=== PATIENT | female | born 1965 | race African-American/Black ===

== ENCOUNTER 2020-06-14 07:42 | Emergency (ER) | payer MEDICAID, OTHER ==
[~2020-06-14] VITALS: Ht 157.5 cm; Wt 90.7 kg
[2020-06-14 08:31] LABS: Basophils # (auto) 0 10 ^3/uL (0-0.2); Basophils % (auto) 0.3 % (0.0-2.0); Eosinophils # (auto) 0 10 ^3/uL (0-0.8); White Blood Cell 10.4 10^3/uL (4.4-10.8)
[2020-06-14 08:32] LABS: Eosinophils % (auto) 0.2 % (0.0-7.0); Hematocrit 44.6 % (36.0-46.0); Hemoglobin 14.6 g/dL (12.2-16.2); Lymphocytes # (auto) 0.4 10 ^3/uL (0.4-5.4); Mean Corpuscular Hemoglobin 22.5 pg (28.0-32.0); Mean Corpuscular Hgb Conc. 32.7 g/dL (32.0-36.0); Mean Corpuscular Volume 68.8 fL (80.0-100.0); Monocytes # (auto) 0.3 10 ^3/uL (0-1.3); Monocytes % (auto) 3.3 % (0.0-12.0); Neutrophils # (auto) 9.6 10 ^3/uL (1.6-8.6); Neutrophils % (auto) 92.2 % (37.0-80.0); Red Blood Cells 6.48 10^6/uL (4.0-5.20); Red Cell Distribution Width 15.5 % (11.8-14.3)
[2020-06-14] MEDS ORDERED: SODIUM CHLORIDE 0.9% 1,000 ML IV ONE ×2 (08:45)
[2020-06-14 08:49] LABS: Alanine Aminotransferase 13 U/L (13-56); Albumin 3.6 g/dL (3.4-5.0); Amylase 45 U/L (25-115); Anion Gap 9 (5-15); Aspartate Aminotransferase 14 U/L (15-37); BUN/Creatinine Ratio 19.5; Blood Urea Nitrogen 16 mg/dL (7-18); Calcium 8.5 mg/dL (8.5-10.1); Carbon Dioxide 22 mmol/L (21-32); Chloride 108 mmol/L (98-107); GFR African American 93 mL/min; GFR Non-African American 77 mL/min; Glucose 108 mg/dL (74-106); Lipase 100 U/L (73-393); Potassium 4.4 mmol/L (3.5-5.1); Sodium 139 mmol/L (136-145)
[2020-06-14 08:52] LABS: Urine Bacteria NONE SEEN /hpf (None Seen); Urine Blood Negative /uL (Negative); Urine Hyaline Cast FEW /lpf (0 - 2); Urine Mucus FEW (None Seen); Urine Specific Gravity 1.024 (1.001-1.035); Urine WBC 2 /hpf (0 - 5)
[2020-06-14 08:54] LABS: Alkaline Phosphatase 84 U/L (45-117); Bilirubin, Total 0.5 mg/dL (0.2-1.0); Total Protein 7.4 g/dL (6.4-8.2)
[2020-06-14 10:39] VITALS: BP 106/51
== END 2020-06-14 10:50 | disposition home or self-care (01) ==
LOC: ER 07:42
DX: R10.84 Generalized abdominal pain (principal); R07.9 Chest pain, unspecified; R19.7 Diarrhea, unspecified; F17.210 Nicotine dependence, cigarettes, uncomplicated; F31.9 Bipolar disorder, unspecified; F20.9 Schizophrenia, unspecified
CPT/HCPCS: 36415; 71045; 80053; 81001; 82150; 83690; 83735; 84484; 85025; 93005; 99285; J7030

== ENCOUNTER 2020-08-18 07:38 | Emergency (ER) | payer MEDICAID ==
[~2020-08-18] VITALS: Ht 157.5 cm; Wt 91.6 kg
[2020-08-18 08:07] LABS: Basophils # (auto) 0.1 10 ^3/uL (0-0.2); Basophils % (auto) 0.7 % (0.0-2.0); Eosinophils # (auto) 0.2 10 ^3/uL (0-0.8); Eosinophils % (auto) 2.7 % (0.0-7.0); Hematocrit 38.5 % (36.0-46.0); Hemoglobin 12.7 g/dL (12.2-16.2); Lymphocytes # (auto) 2.8 10 ^3/uL (0.4-5.4); Lymphocytes % (auto) 35.2 % (10.0-50.0); Mean Corpuscular Hemoglobin 22.5 pg (28.0-32.0); Mean Corpuscular Hgb Conc. 32.9 g/dL (32.0-36.0); Mean Corpuscular Volume 68.2 fL (80.0-100.0); Monocytes # (auto) 0.6 10 ^3/uL (0-1.3); Monocytes % (auto) 7.9 % (0.0-12.0); Neutrophils # (auto) 4.2 10 ^3/uL (1.6-8.6); Neutrophils % (auto) 53.5 % (37.0-80.0); Nucleated Red Blood Cells % 0.1 %; Platelet Count (auto) 185 10^3/uL (140-450); Red Blood Cells 5.65 10^6/uL (4.0-5.20); Red Cell Distribution Width 15.9 % (11.8-14.3); White Blood Cell 7.9 10^3/uL (4.4-10.8)
[2020-08-18 08:11] VITALS: BP 155/77
[2020-08-18 08:22] LABS: Albumin 3.5 g/dL (3.4-5.0); Calcium 8.6 mg/dL (8.5-10.1); Potassium 4.3 mmol/L (3.5-5.1)
[2020-08-18 08:26] LABS: Bilirubin, Total 0.5 mg/dL (0.2-1.0); Total Protein 6.9 g/dL (6.4-8.2)
[2020-08-18 08:43] LABS: Urine Bacteria FEW /hpf (None Seen); Urine Blood Negative /uL (Negative); Urine Mucus FEW (None Seen); Urine Specific Gravity 1.018 (1.001-1.035); Urine WBC 14 /hpf (0 - 5)
== END 2020-08-18 09:52 | disposition home or self-care (01) ==
LOC: ER 07:38
DX: N39.0 Urinary tract infection, site not specified (principal); R42 Dizziness and giddiness; R51.9 Headache, unspecified; F20.9 Schizophrenia, unspecified; F31.9 Bipolar disorder, unspecified; F17.210 Nicotine dependence, cigarettes, uncomplicated
CPT/HCPCS: 36415; 70450; 72040; 80053; 81001; 85025

== ENCOUNTER 2020-10-06 05:23 | Emergency (ER) | payer MEDICAID ==
[~2020-10-06] VITALS: Ht 165.1 cm; Wt 81.6 kg
[2020-10-06 07:31] VITALS: BP 145/93
[2020-10-06] MEDS ORDERED: PROMETHAZINE HCL 25 MG/ML 1ML IM ONE (07:45)
[2020-10-06] MEDS ORDERED: HYDROmorphone HCL 2 MG/ML VL IM ONE (07:45)
== END 2020-10-06 08:46 | disposition home or self-care (01) ==
LOC: ER 05:23
DX: G89.29 Other chronic pain (principal); M54.9 Dorsalgia, unspecified; M54.12 Radiculopathy, cervical region; F17.210 Nicotine dependence, cigarettes, uncomplicated
CPT/HCPCS: 72125; 96372; 99284; J1170; J2550

== ENCOUNTER 2021-07-13 07:18 | Emergency (ER) | payer MEDICAID ==
[~2021-07-13] VITALS: Ht 157.5 cm; Wt 90.7 kg
[2021-07-13 07:47] VITALS: BP 125/62
[2021-07-13] MEDS ORDERED: CEPH-509 PO (08:03)
[2021-07-13 08:07] LABS: Urine Bacteria FEW /hpf (None Seen); Urine Blood Negative /uL (Negative); Urine Specific Gravity 1.017 (1.001-1.035); Urine WBC 13 /hpf (0 - 5)
== END 2021-07-13 08:10 | disposition home or self-care (01) ==
LOC: ER 07:18
DX: S30.814A Abrasion of vagina and vulva, initial encounter (principal); F17.210 Nicotine dependence, cigarettes, uncomplicated; Z79.899 Other long term (current) drug therapy; Z88.0 Allergy status to penicillin; X58.XXXA Exposure to other specified factors, initial encounter; Y93.89 Activity, other specified; Y92.89 Other specified places as the place of occurrence of the external cause; Y99.8 Other external cause status
CPT/HCPCS: 81001

== ENCOUNTER 2021-12-23 17:33 | Emergency (ER) | payer MEDICAID ==
[~2021-12-23] VITALS: Ht 157.5 cm; Wt 100.0 kg
[~2021-12-23 17:33] MED LIST: CEPH-509 PO
[2021-12-23] MEDS ORDERED: diphenhdrAMINE HCL 50 MG/1 ML VL ONE (17:53)
[2021-12-23] MEDS ORDERED: methylPREDNISolone SOD SUCC 125 MG/2 ML VL ONE (17:53)
[2021-12-23] MEDS ORDERED: methylPREDNISolone SOD SUCC 125 MG/2 ML VL IV ONE (18:00)
[2021-12-23] MEDS ORDERED: diphenhdrAMINE HCL 50 MG/1 ML VL IV ONE (18:00)
[2021-12-23 20:52] VITALS: BP 132/78
[2021-12-23] MEDS ORDERED: EPIN0.3I24 IJ (20:59)
== END 2021-12-23 20:51 | disposition left against medical advice (07) ==
LOC: ER 17:33
DX: T78.40XA Allergy, unspecified, initial encounter (principal); F17.210 Nicotine dependence, cigarettes, uncomplicated; Z90.710 Acquired absence of both cervix and uterus; Z79.899 Other long term (current) drug therapy; Z88.0 Allergy status to penicillin; Y92.89 Other specified places as the place of occurrence of the external cause
CPT/HCPCS: 70490; 96374; 96375; 99284; J1200; J2930

== ENCOUNTER 2022-03-13 08:54 | Emergency (ER) | payer MEDICAID, OTHER ==
[~2022-03-13] VITALS: Ht 157.5 cm; Wt 100.3 kg
[~2022-03-13 08:54] MED LIST changes: +EPIN0.3I24 IJ
[2022-03-13 09:34] VITALS: BP 134/79
[2022-03-13] MEDS ORDERED: PROM1SOL4 PO (10:44)
[2022-03-13] MEDS ORDERED: AZIT500T66 PO (10:44)
== END 2022-03-13 10:51 | disposition home or self-care (01) ==
LOC: ER 08:57
DX: S16.1XXA Strain of muscle, fascia and tendon at neck level, initial encounter (principal); S39.012A Strain of muscle, fascia and tendon of lower back, initial encounter; J20.9 Acute bronchitis, unspecified; F17.210 Nicotine dependence, cigarettes, uncomplicated; Z90.710 Acquired absence of both cervix and uterus; Z79.2 Long term (current) use of antibiotics; Z79.899 Other long term (current) drug therapy; Z88.0 Allergy status to penicillin; V49.9XXA Car occupant (driver) (passenger) injured in unspecified traffic accident, initial encounter; Y93.89 Activity, other specified; Y92.410 Unspecified street and highway as the place of occurrence of the external cause; Y99.8 Other external cause status
CPT/HCPCS: 71045; 72040; 72070

== ENCOUNTER 2022-07-25 04:19 | Emergency (ER) | payer MEDICAID, OTHER ==
[~2022-07-25] VITALS: Ht 157.5 cm; Wt 94.1 kg
[~2022-07-25 04:19] MED LIST changes: +AZIT500T66 PO; +PROM1SOL4 PO
[2022-07-25 06:29] VITALS: BP 135/75
== END 2022-07-25 07:05 | disposition home or self-care (01) ==
LOC: ER 04:19
DX: S93.402A Sprain of unspecified ligament of left ankle, initial encounter (principal); M19.90 Unspecified osteoarthritis, unspecified site; G89.29 Other chronic pain; F17.210 Nicotine dependence, cigarettes, uncomplicated; Z90.710 Acquired absence of both cervix and uterus; Z88.0 Allergy status to penicillin; X50.9XXA Other and unspecified overexertion or strenuous movements or postures, initial encounter; Y93.01 Activity, walking, marching and hiking; Y92.89 Other specified places as the place of occurrence of the external cause; Y99.8 Other external cause status
CPT/HCPCS: 73610

== ENCOUNTER 2023-05-15 14:46 | Inpatient (IN) | payer MEDICAID ==
[~2023-05-15] VITALS: Ht 157.5 cm; Wt 105.6 kg
[2023-05-15 15:18] LABS: Basophils # (auto) 0 10 ^3/uL (0-0.2); Eosinophils # (auto) 0.1 10 ^3/uL (0-0.8); Mean Corpuscular Hemoglobin 21.6 pg (28.0-32.0); Monocytes # (auto) 0.8 10 ^3/uL (0-1.3); Nucleated Red Blood Cells % 0.1 %; White Blood Cell 11.1 10^3/uL (4.4-10.8)
[2023-05-15 15:20] LABS: Basophils % (auto) 0.3 % (0.0-2.0); Eosinophils % (auto) 0.7 % (0.0-7.0); Hematocrit 44.8 % (36.0-46.0); Hemoglobin 14.2 g/dL (12.2-16.2); Lymphocytes # (auto) 3.7 10 ^3/uL (0.4-5.4); Lymphocytes % (auto) 33.4 % (10.0-50.0); Mean Corpuscular Hgb Conc. 31.7 g/dL (32.0-36.0); Mean Corpuscular Volume 68.3 fL (80.0-100.0); Monocytes % (auto) 6.9 % (0.0-12.0); Neutrophils # (auto) 6.5 10 ^3/uL (1.6-8.6); Neutrophils % (auto) 58.7 % (37.0-80.0); Red Blood Cells 6.56 10^6/uL (4.0-5.20); Red Cell Distribution Width 16.3 % (11.8-14.3)
[2023-05-15 15:29] LABS: Chloride 105 mmol/L (98-107); Potassium 3.6 mmol/L (3.5-5.1); Sodium 139 mmol/L (136-145)
[2023-05-15 15:30] LABS: Anion Gap 3 (5-15); Calcium 9.4 mg/dL (8.5-10.1); Carbon Dioxide 31 mmol/L (20-30)
[2023-05-15 15:35] LABS: BUN/Creatinine Ratio 8.5 (10.0-20.0); Blood Urea Nitrogen 9 mg/dL (9-23); Glucose 82 mg/dL (74-106)
[2023-05-15 15:44] LABS: Urine Bacteria FEW /hpf (None Seen); Urine Blood Negative /uL (Negative); Urine Clarity Clear (Clear); Urine Color Yellow (Yellow); Urine Mucus FEW (None Seen); Urine Protein, UAD Negative (Negative); Urine WBC 5 /hpf (0 - 5)
[2023-05-15] MEDS ORDERED: ONDANSETRON HCL 4 MG/2 ML VIAL IV PRN (18:30)
[2023-05-15] MEDS: SODIUM CHLORIDE 0.9% 1,000 ML IV ONE (18:50)
[2023-05-15 19:07] LABS: Creatinine, Urine 177.89 mg/dL (30.0-125.0)
[2023-05-15] MEDS: SODIUM CHLORIDE 0.9% 1,000 ML IV SCH (20:27)
[2023-05-15] MEDS: levoFLOXacin 500MG 100 ML IV ONE (20:31)
[2023-05-15] MEDS: KETOROLAC TROMETH 30 MG/ML 1ML VIAL IV ONE (20:35)
[2023-05-15 23:27] VITALS: BP 131/74; PULSE 75; RESP 20; TEMP 98.9
[2023-05-16] VITALS (7 sets, daily range): BP systolic 121–135; BP diastolic 66–74; PULSE 75–89; RESP 14–19; TEMP 97.3–98.3; O2SAT 96–99
[2023-05-16] MEDS: MORPHINE SULFATE INJ 2 MG/ml SYRG IV PRN (00:37)
[2023-05-16 05:03] LABS: Basophils # (auto) 0 10 ^3/uL (0-0.2); Basophils % (auto) 0.3 % (0.0-2.0); Eosinophils # (auto) 0.1 10 ^3/uL (0-0.8); Monocytes # (auto) 0.6 10 ^3/uL (0-1.3)
[2023-05-16 05:05] LABS: Eosinophils % (auto) 1.1 % (0.0-7.0); Hematocrit 39.9 % (36.0-46.0); Hemoglobin 12.9 g/dL (12.2-16.2); Lymphocytes # (auto) 3.4 10 ^3/uL (0.4-5.4); Mean Corpuscular Hemoglobin 22.1 pg (28.0-32.0); Mean Corpuscular Hgb Conc. 32.4 g/dL (32.0-36.0); Monocytes % (auto) 7.5 % (0.0-12.0); Neutrophils # (auto) 4.2 10 ^3/uL (1.6-8.6); Neutrophils % (auto) 50.1 % (37.0-80.0); Nucleated Red Blood Cells % 0.1 %; Red Blood Cells 5.87 10^6/uL (4.0-5.20); White Blood Cell 8.4 10^3/uL (4.4-10.8)
[2023-05-16 05:21] LABS: Albumin 3.6 g/dL (3.2-4.8); Alkaline Phosphatase 65 U/L (46-116); Anion Gap 4 (5-15); Aspartate Aminotransferase 13 U/L (13-40); BUN/Creatinine Ratio 11.1 (10.0-20.0); Bilirubin, Total 0.5 mg/dL (0.2-1.0); Blood Urea Nitrogen 10 mg/dL (9-23); Calcium 8.7 mg/dL (8.7-10.4); Carbon Dioxide 27 mmol/L (20-30); Chloride 110 mmol/L (98-107); Glucose 89 mg/dL (74-106); Potassium 4.2 mmol/L (3.5-5.1); Sodium 141 mmol/L (136-145)
[2023-05-16 05:22] LABS: Total Protein 6.1 g/dL (5.7-8.2)
[2023-05-16 05:23] LABS: Alanine Aminotransferase < 9 U/L (7-40)
[2023-05-16] MEDS ORDERED: GABA800T97 PO (07:08)
[2023-05-16] MEDS ORDERED: LURA40TA2 PO (07:08)
[2023-05-16] MEDS ORDERED: PERCOT PO (07:52)
[2023-05-16] MEDS: PANTOPRAZOLE 40 MG/10 ML VIAL INJ IV SCH (09:06)
[2023-05-16] MEDS: levoFLOXacin 500MG 100 ML IV SCH (09:10)
[2023-05-16] MEDS: DOCUSATE SOD 100 MG CAP PO PRN (09:52)
[2023-05-16] MEDS: KETOROLAC TROMETH 30 MG/ML 1ML VIAL IV PRN (23:07)
[2023-05-17 05:00] VITALS: BP 101/55; PULSE 70; RESP 19; TEMP 98.1; O2SAT 98
[2023-05-17 08:00] VITALS: RESP 18
[2023-05-17 08:40] VITALS: BP 127/69; PULSE 86; RESP 18; TEMP 97.7; O2SAT 96
[2023-05-17 12:50] VITALS: BP 141/74; PULSE 87; RESP 18; TEMP 97.4; O2SAT 99
== END 2023-05-17 15:50 | disposition left against medical advice (07) | DRG 241 ==
LOC: ER 14:46 → OVERFLOW 18:27 → CENTRAL 22:15 → WEST WING 05-16 19:05
PROVIDERS: ADMIT Nurse Practitioner Family; ATTEND Nurse Practitioner Family
DX: K29.00 Acute gastritis without bleeding (principal); N17.9 Acute kidney failure, unspecified; N13.6 Pyonephrosis; F17.210 Nicotine dependence, cigarettes, uncomplicated; Z53.29 Procedure and treatment not carried out because of patient's decision for other reasons; K44.9 Diaphragmatic hernia without obstruction or gangrene; F20.9 Schizophrenia, unspecified; F31.9 Bipolar disorder, unspecified; Z90.710 Acquired absence of both cervix and uterus; Z88.0 Allergy status to penicillin
CPT/HCPCS: 36415; 74176; 80048; 80053; 81001; 82570; 84300; 85025; 87086; 96361; 96365; 96375; C9113; G0378; J1885; J1956

== ENCOUNTER 2023-06-24 07:50 | Emergency (ER) | payer MEDICAID ==
[~2023-06-24] VITALS: Ht 162.6 cm; Wt 99.2 kg
[~2023-06-24 07:50] MED LIST changes: +GABA800T97 PO; +LURA40TA2 PO; +PERCOT PO
[2023-06-24 08:42] VITALS: BP 141/68; TEMP 98
[2023-06-24 08:43] VITALS: PULSE 78; RESP 18; O2SAT 97
[2023-06-24 08:49] LABS: Urine Bacteria FEW /hpf (None Seen); Urine Blood Negative /uL (Negative); Urine Budding Yeast OCCASIONAL /hpf (None Seen); Urine Clarity Clear (Clear); Urine Color Light-Yellow (Yellow); Urine Protein, UAD Negative (Negative); Urine Urobilinogen Normal (Negative); Urine WBC 9 /hpf (0 - 5)
[2023-06-24 09:20] LABS: Basophils # (auto) 0 10 ^3/uL (0-0.2); Basophils % (auto) 0.4 % (0.0-2.0); Eosinophils # (auto) 0.1 10 ^3/uL (0-0.8); Eosinophils % (auto) 0.7 % (0.0-7.0); Hematocrit 42.5 % (36.0-46.0); Hemoglobin 13.6 g/dL (12.2-16.2); Lymphocytes # (auto) 2.7 10 ^3/uL (0.4-5.4); Lymphocytes % (auto) 34.3 % (10.0-50.0); Mean Corpuscular Hemoglobin 21.6 pg (28.0-32.0); Mean Corpuscular Hgb Conc. 32.1 g/dL (32.0-36.0); Mean Corpuscular Volume 67.3 fL (80.0-100.0); Monocytes # (auto) 0.5 10 ^3/uL (0-1.3); Monocytes % (auto) 6.9 % (0.0-12.0); Neutrophils # (auto) 4.6 10 ^3/uL (1.6-8.6); Neutrophils % (auto) 57.7 % (37.0-80.0); Nucleated Red Blood Cells % 0.1 %; Red Blood Cells 6.32 10^6/uL (4.0-5.20); Red Cell Distribution Width 15.7 % (11.8-14.3); White Blood Cell 7.9 10^3/uL (4.4-10.8)
[2023-06-24 09:23] LABS: Chloride 108 mmol/L (98-107); Potassium 4.4 mmol/L (3.5-5.1); Sodium 139 mmol/L (136-145)
[2023-06-24 09:24] LABS: Anion Gap 3 (5-15); Calcium 9.5 mg/dL (8.5-10.1); Carbon Dioxide 28 mmol/L (20-30)
[2023-06-24 09:29] LABS: BUN/Creatinine Ratio 13.1 (10.0-20.0); Blood Urea Nitrogen 13 mg/dL (9-23); Glucose 92 mg/dL (74-106)
[2023-06-24 09:44] LABS: Hypochromia Moderate; Ovalocytes FEW; Target Cell FEW
[2023-06-24] MEDS: cefTRIAXone SOD 1,000 MG VL IM ONE (09:45)
[2023-06-24 09:59] LABS: Platelet Estimate Adequate
[2023-06-24] MEDS ORDERED: NITR-87 PO (10:03)
== END 2023-06-24 10:11 | disposition home or self-care (01) ==
LOC: ER 07:50
DX: N30.90 Cystitis, unspecified without hematuria (principal); F17.210 Nicotine dependence, cigarettes, uncomplicated; Z90.710 Acquired absence of both cervix and uterus; Z88.0 Allergy status to penicillin
CPT/HCPCS: 36415; 80048; 81001; 85025; 96372; 99283; J0696

== ENCOUNTER 2024-01-17 08:19 | Emergency (ER) | payer MEDICAID ==
[~2024-01-17] VITALS: Ht 157.5 cm; Wt 95.0 kg
[~2024-01-17 08:19] MED LIST changes: +NITR-87 PO
[2024-01-17 08:45] VITALS: BP 155/108; PULSE 115; RESP 20; TEMP 97; O2SAT 98
[2024-01-17] MEDS: NEOMYCIN-BACITRACIN-POLYM 15GM TOP OINT TOP SCH (09:04)
[2024-01-17] MEDS ORDERED: AZEL137S7 (09:10)
[2024-01-17] MEDS ORDERED: AUG875T PO (09:10)
[2024-01-17] MEDS ORDERED: ALBU108A5 IN (09:10)
[2024-01-17] MEDS ORDERED: PROM1SOL4 PO (09:10)
--- NOTE | 2024-01-17 09:11 | ED.PDOC ---
History of Present Illness HPI Comments This is a 58-year-old that comes in with flu-like symptoms but mainly in the upper respiratory area. She states she has got a lot of cough her chest is sore and excessive mucus. Only gets short of breath at nighttime when she is laying down. She feels like she is wheezing at night. Her grandson was sick last week and believes that she got it from him.. No fever no chills. Chief Complaint: Flu like Time Seen by MD: 08:57 Primary Care Provider: LINDSAY Lazaro Notes: Nurses Notes, Medications, Allergies Allergies: Coded Allergies: Penicillins (Verified Allergy, Unknown, 07/13/21) Home Meds Active Scripts Nitrofurantoin Monohydrate Mac (Macrobid) 100 Mg Cap, 100 MG PO BID for 5 Days, #10 CAP 0 Refills Prov:DUANE CUENCA NP 06/24/23 Promethazine-Dm (Promethazine Dm 6.25-15 mg/5Ml) 1 [place], 5 ML PO TID, #150 ML Prov:SUNDAY TIRADO 03/13/22 Azithromycin (Azithromycin) 500 Mg Tab, 1 TAB PO DAILY, #5 TAB Prov:SUNDAY TIRADO 03/13/22 Epinephrine (Epinephrine) 0.3 Mg/0.3 Ml Inj, 0.3 MG IJ PRN for 365 Days, #1 INJ Prov:HAYLIE DERAS MD 12/23/21 Cephalexin (KEFLEX 500) 500 Mg Cap, 1 CAP PO QID, #28 CAP Prov:SUNDAY TIRADO 07/13/21 Reported Medications Oxycodone W/ Acetaminophen (Percocet 5/325MG) 1 Tab Tb, 1 TAB PO TID, #90 TAB Patient actually takes Percocet 10/325 PO TID per patient report. Hospital only stocks 5/325. 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/FIREMAN Hx Family History Family History: Reviewed,noncontributory to illness Social History Smoker: Cigarettes, Less Than 1 Pack/Day Alcohol: Occasionally Drugs: Denies Drug Use Lives In: Home Constitutional: reports: chills, fever EENTM: reports: nasal discharge, nose congestion Respiratory: reports: cough, SOB at rest, wheezing, others (Chest is sore) Physical Exam General Appearance: No Apparent Distress, None HEENT: PERRL/EOMI, Pharynx Normal, Other (Nasal congestion) Neck: Non-Tender, Normal, Normal Inspection Respiratory: Lungs Clear, No Accessory Muscle Use, No Respiratory Distress, Normal Breath Sounds Cardiovascular: Regular Rate/Rhythm Breast Exam: Deferred Gastrointestinal: Non Tender, Normal Bowel Sounds Genitalia: Deferred Pelvic: Deferred Rectal: Deferred Extremities: Normal inspection, Normal range of motion Neurologic: Alert, No Motor Deficits, Normal Affect, Normal Mood, No Sensory Deficits Cerebellar Function: Normal Reflexes: NOT DONE Skin: Dry, Warm Lymphatic: No Adenopathy Was a procedure done? Was a procedure done?: No Differential Dx Considerations may include: Pneumonia versus upper respiratory infection X-Ray, Labs, Meds, VS Vital Signs Date Time Temp Pulse Resp B/P (MAP) Pulse Ox O2 Delivery O2 Flow Rate FiO2 01/17/24 08:45 97.0 115 20 155/108 (124) 98 97.0 01/17/24 08:30 20 98 Room Air 01/17/24 08:30 97.0 115 20 155/108 (124) 98 X-Ray, Labs, Meds, VS Comment Patient seen and examined by me. No need for testing of influenza or COVID. Patient most likely has a upper respiratory infection but with the continuous postnasal drip is causing her to cough excessively. I will send her home on a albuterol inhaler, asthma and nose spray and antibiotics. Instructed to drink lots of liquids to help loosen up the mucus.. Time of 1ST Reevaluation: 09:02 Reevaluation 1ST: Unchanged Patient Education/Counseling: Diagnosis, Treatment, Prognosis, Need For Follow Up Family Education/Counseling: No Family Present Departure 1 Departure Time of Disposition: 09:02 Impression: Primary Impression: Upper respiratory infection Disposition: HOME / SELF CARE / HOMELESS Condition: Good Additional Instructions: Finish the antibiotics as directed Use the nose spray as directed this will help Dry up her nose and will help with your cough Take the cough medicine as directed Use the inhaler if needed if you have excessive coughing Return for shortness of breath Follow-up with your primary care in the next 2 days e-Prescriptions Albuterol Sulfate (Albuterol Sulfate Hfa) 108 Mcg/Act Aer 108 MCG IN Q4HP PRN for 7 Days, #1 AER Prov: GRIS HERNANDEZ [facility] 01/17/24 Azelastine Hcl-Fluticasone Pro (DYMISTA) 1 Spr Spr 1 SPRAY NA BID for 7 Days, #23 GRAMS 6 Refills Prov: GRIS HERNANDEZ [facility] 01/17/24 Amoxicillin & Pot Clavulanate (AUGMENTIN TABLET) 875 Mg Tb 875 MG PO BID for 10 Days, #20 TAB Prov: GRIS HERNANDEZ [facility] 01/17/24 Promethazine-Dm (Promethazine Dm 6.25-15 mg/5Ml) 1 [place] Carolina 1 CAR[place] PO TID PRN for 7 Days, #120 ML Prov: GRIS HERNANDEZP 01/17/24 Discharged With: Self Critical Care Note Critical Care Time?: No Stability Stability form required: No GRIS HERNANDEZ [facility] Jan 17, 2024 09:11
--- NOTE | 2024-01-19 12:43 | ECG ---
[facility] Test Date: 2024-01-17 Test Time: 08:35:17 Pat Name: NIR KAN Department: ER Room: Gender: F Wide Area Network Administrator: CECILIA : 1965 Requested By: GRIS HERNANDEZ Order Number: [id number] Reading MD: Yaya Ames Measurements Intervals Ramsay Rate: 94 P: 77 LA: 106 QRS: 62 QRSD: 76 T: 29 QT: 360 QTc: 451 Interpretive Statements Sinus rhythm Short LA interval Electronically Signed On 01-22-2024 16:56:55 PST by Yaya Ames Please click the below link to view image of tracing.
== END 2024-01-17 09:12 | disposition home or self-care (01) ==
LOC: ER 08:19
DX: J06.9 Acute upper respiratory infection, unspecified (principal); J44.89 Other specified chronic obstructive pulmonary disease; F17.210 Nicotine dependence, cigarettes, uncomplicated; M19.90 Unspecified osteoarthritis, unspecified site; Z88.0 Allergy status to penicillin; Z90.710 Acquired absence of both cervix and uterus
CPT/HCPCS: 93005

== ENCOUNTER 2024-01-25 14:01 | Emergency (ER) | payer MEDICAID ==
[~2024-01-25] VITALS: Ht 160 cm; Wt 93.9 kg
[~2024-01-25 14:01] MED LIST changes: +ALBU108A5 IN; +AUG875T PO; +AZEL137S7
--- NOTE | 2024-01-25 15:16 | DVH ---
XY CHEST TWO VIEWS ROUTINE CLINICAL HISTORY: Cough COMPARISON: Chest radiograph 03/13/2022 TECHNIQUE: Frontal and lateral view of the chest was obtained FINDINGS: Lines and Tubes: None Lungs: No focal consolidation. Bilateral interstitial prominence. Pleura: No effusion. No pneumothorax. Cardiomediastinal contours: Unremarkable Bones: No acute osseous abnormality. IMPRESSION: 1. Bilateral interstitial prominence could represent pulmonary vascular congestion, atypical infectio n, or pneumonitis. HS:Y
[2024-01-25] MEDS ORDERED: AZIT-43 PO (15:31)
[2024-01-25] MEDS ORDERED: BENZ100C97 PO (15:31)
[2024-01-25] MEDS ORDERED: GUAI600T78 PO (15:31)
--- NOTE | 2024-01-25 15:31 | ED.PDOC ---
SOB-HPI HPI Comments 58 year old female presents for productive cough with yellow phlegm Symptoms started 2 weeks ago Denies associated symptoms Denies fevers chills night sweats unintentional weight loss Denies persistent chest pain, shortness of breath, leg swelling Denies history of asthma nor any breathing conditions Denies history of pneumonia Denies recent international travel Chief Complaint: Flu like Time Seen by MD: 14:41 Primary Care Provider: LINDSAY Lazaro notes: Nurses Notes, Medications, Allergies Information Source: Patient Mode of Arrival: Ambulatory Past Medical History PAST MEDICAL HISTORY: Arthritis, Asthma, COPD Surgical History: Hysterectomy 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 HANDLER Hx Family History Family History: Reviewed,noncontributory to illness Social History Smoker: Cigarettes, Less Than 1 Pack/Day Alcohol: Occasionally Drugs: Denies Drug Use Lives In: Home All Other Systems: Reviewed and Negative (Per HPI) Physical Exam General Appearance: No Apparent Distress, Normal HEENT: Normal ENT Inspection, Pharynx Normal, TMs Normal Neck: Full Range of Motion, Non-Tender, Normal, Normal Inspection Respiratory: Chest Non-Tender, Lungs Clear, No Accessory Muscle Use, No Respiratory Distress, Normal Breath Sounds Cardiovascular: No Edema, No JVD, No Murmur, No Gallop, Normal Peripheral Pulses, Regular Rate/Rhythm Breast Exam: Deferred Gastrointestinal: No Organomegaly, Non Tender, No Pulsatile Mass, Normal Bowel Sounds, Soft Genitalia: Deferred Pelvic: Deferred Rectal: Deferred Extremities: No calf tenderness, Normal capillary refill, Normal inspection, Normal range of motion, Non-tender, No pedal edema Musculoskeletal : Apperance: Normal Neurologic: Alert, site auditor II-XII nml as Tested, No Motor Deficits, Normal Affect, Normal Mood, No Sensory Deficits Cerebellar Function: Normal Reflexes: Normal Skin: Dry, Normal Color, Warm Lymphatic: No Adenopathy Was a procedure done? Was a procedure done?: No Differential Dx Differential Diagnosis: Bronchitis, Pneumonia, Otitis Media, URI X-Ray, Labs, Meds, VS Vital Signs Date Time Temp Pulse Resp B/P (MAP) Pulse Ox O2 Delivery O2 Flow Rate FiO2 01/25/24 14:21 97.8 100 16 133/75 (94) 98 Current Medications Medications (Trade) Dose Ordered Sig/Zeferino Route Start Time Stop Time Status Last Admin Ceftriaxone Sodium (Rocephin) 1,000 mg ONCE ONCE IM 01/25/24 15:30 01/25/24 15:31 DC 01/25/24 16:58 Ketorolac Tromethamine (Toradol Injection) 30 mg ONCE ONCE IM 01/25/24 15:30 01/25/24 15:31 DC 01/25/24 16:58 X-Ray, Labs, Meds, VS Comment Exam findings consistent with community-acquired pneumonia Curb score negative No respiratory distress, hypoxia to suggest inpatient treatment No retractions, no respiratory distress Good p.o. intake, no signs of dehydration On reevaluation, patient had symptomatic improvement. Patient is stable for discharge at this time. External notes reviewed. Test results and diagnostic imaging interpreted. All diagnostic findings, discharge care, education and instructions provided Follow-up with PCP in 2 to 3 days Patient verbalized understanding and agreed to treatment plan Vital signs stable, afebrile, no acute distress noted Patient ambulatory with strong steady gait Advised to return precautions for any new or worsening symptoms, return to ER immediately for re-evaluation Patient is aware that the purpose of this visit was for an acute medical emergency requiring emergent stabilization. Chronic conditions, including malignancies have not been ruled out. Patient is instructed to follow up with PCP as directed and discharge instructions for continued care and workup. If unable to arrange follow-up, patient is to return to the emergency department for reassessment. Patient (parent or legal guardian if applicable) was given verbal and written discharge instructions and acknowledges understanding. Time of 1ST Reevaluation: 15:19 Reevaluation 1ST: Improved Patient Education/Counseling: Diagnosis, Treatment Family Education/Counseling: Diagnosis, Treatment Departure 1 Departure Time of Disposition: 15:30 Impression: Primary Impression: CAP (community acquired pneumonia) Qualified Codes: J18.9 - Pneumonia, unspecified organism Disposition: HOME / SELF CARE / HOMELESS Condition: Stable e-Prescriptions Guaifenesin (Mucinex) 600 Mg Tab 1 TAB PO BID for 7 Days, #14 TAB 0 Refills Prov: DUANE CUENCA HANDS ASSEMBLER 01/25/24 Benzonatate (Benzonatate) 100 Mg Cap 1 CAP PO TID for 10 Days, #30 CAP 0 Refills Prov: DUANE CUENCA HANDS ASSEMBLER 01/25/24 Azithromycin (Azithromycin) 250 Mg Tab 250 MG PO DAILY MDD 500 for 5 Days, #6 TAB 0 Refills 2 TABLETS ORALLY ON DAY ONE, THEN 1 TABLET ORALLY DAILY FOR 4 DAYS Prov: DUANE CUENCA NP 01/25/24 Discharged With: Self Critical Care Note Critical Care Time?: No Stability Stability form required: No Heart Score Heart Score: Heart Score Response (Comments) Value History N/A 0 EKG N/A 0 Age N/A 0 Risk Factors N/A 0 Troponin N/A 0 Total 0 DUANE CUENCA NP Jan 25, 2024 15:31
[2024-01-25 16:00] VITALS: BP 134/75; PULSE 87; RESP 18; TEMP 98; O2SAT 100
[2024-01-25] MEDS: cefTRIAXone SOD 1,000 MG VL IM ONE (16:58)
[2024-01-25] MEDS: KETOROLAC TROMETH 30 MG/ML 1ML VIAL IM ONE (16:58)
== END 2024-01-25 15:31 | disposition home or self-care (01) ==
LOC: ER 14:01
DX: J18.9 Pneumonia, unspecified organism (principal); J44.0 Chronic obstructive pulmonary disease with (acute) lower respiratory infection; M19.90 Unspecified osteoarthritis, unspecified site; F17.210 Nicotine dependence, cigarettes, uncomplicated; Z90.710 Acquired absence of both cervix and uterus
CPT/HCPCS: 71046; 96372; 99284; J0696; J1885

== ENCOUNTER 2024-02-25 14:19 | Emergency (ER) | payer MEDICAID ==
[~2024-02-25 14:19] MED LIST changes: +AZIT-43 PO; +BENZ100C97 PO; +GUAI600T78 PO
--- NOTE | 2024-02-25 15:36 | DVH ---
XY CHEST TWO VIEWS ROUTINE CLINICAL HISTORY: Shortness of breath COMPARISON: XY CHEST TWO VIEWS ROUTINE on DOS: 01/25/24 TECHNIQUE: Frontal and lateral view of the chest was obtained FINDINGS: Lines and Tubes: None Lungs: No focal consolidation. Pleura: No effusion. No pneumothorax. Cardiomediastinal contours: Unremarkable Bones: No acute osseous abnormality. IMPRESSION: No acute cardiopulmonary disease.
--- NOTE | 2024-02-25 15:39 | ED.PDOC ---
History of Present Illness HPI Comments 58 y.o female presents to the ED for a chief complaint of a cough and congestion that started 1 day ago. Patient reports grandchild is currently sick with similar symptoms. Patient also reports x 1 year ago having PNA with cough and congestion. No chest pain, fever, chills, SOB reported. Vital signs were stable at arrival. Chief Complaint: Flu like Time Seen by MD: 15:32 Primary Care Provider: LINDSAY Reviewed Notes: Nurses Notes, Medications, Allergies Allergies: Coded Allergies: Penicillins (Verified Allergy, Unknown, 07/13/21) Home Meds Active Scripts Guaifenesin (Mucinex) 600 Mg Tab, 1 TAB PO BID for 7 Days, #14 TAB 0 Refills Prov:DUANE CUENCA NP 01/25/24 Benzonatate (Benzonatate) 100 Mg Cap, 1 CAP PO TID for 10 Days, #30 CAP 0 Refills Prov:DUANE CUENCA NP 01/25/24 Azithromycin (Azithromycin) 250 Mg Tab, 250 MG PO DAILY MDD 500 for 5 Days, #6 TAB 0 Refills 2 TABLETS ORALLY ON DAY ONE, THEN 1 TABLET ORALLY DAILY FOR 4 DAYS Prov:DUANE CUENCA NP 01/25/24 Albuterol Sulfate (Albuterol Sulfate Hfa) 108 Mcg/Act Aer, 108 MCG IN Q4HP PRN for 7 Days, #1 AER Prov:[facility] 01/17/24 Azelastine Hcl-Fluticasone Pro (DYMISTA) 1 Spr Spr, 1 SPRAY NA BID for 7 Days, #23 GRAMS 6 Refills Prov:GRIS HERNANDEZ [employer] 01/17/24 Amoxicillin & Pot Clavulanate (AUGMENTIN TABLET) 875 Mg Tb, 875 MG PO BID for 10 Days, #20 TAB Prov:[facility] HERNA[facility]Z [facility] 01/17/24 Promethazine-Dm (Promethazine Dm 6.25-15 mg/5Ml) 1 [place], 1 [place]LO[place] PO TID PRN for 7 Days, #120 ML Prov:GRIS HERNANDEZ [employer] 01/17/24 Nitrofurantoin Monohydrate Mac (Macrobid) 100 Mg Cap, 100 MG PO BID for 5 Days, #10 CAP 0 Refills Prov:DUANE CUENCA NP 06/24/23 Promethazine-Dm (Promethazine Dm 6.25-15 mg/5Ml) 1 [place], 5 ML PO TID, #150 ML Prov:SUNDAY TIRADO 03/13/22 Azithromycin (Azithromycin) 500 Mg Tab, 1 TAB PO DAILY, #5 TAB Prov:SUNDAY TIRADO 03/13/22 Epinephrine (Epinephrine) 0.3 Mg/0.3 Ml Inj, 0.3 MG IJ PRN for 365 Days, #1 INJ Prov:HAYLIE DERAS MD 12/23/21 Cephalexin (KEFLEX 500) 500 Mg Cap, 1 CAP PO QID, #28 CAP Prov:SUNDAY TIRADO 07/13/21 Reported Medications Oxycodone W/ Acetaminophen (Percocet 5/325MG) 1 Tab Tb, 1 TAB PO TID, #90 TAB Patient actually takes Percocet 10/325 PO TID per patient report. Hospital only stocks 5/325. 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 Family History Family History: Reviewed,noncontributory to illness Social History Smoker: Cigarettes, Less Than 1 Pack/Day Alcohol: Occasionally Drugs: Denies Drug Use Lives In: Home Constitutional: denies: chills, diaphoresis, fatigue, fever, malaise, sweats, weakness, others EENTM: reports: nose congestion; denies: blurred vision, double vision, ear bleeding, ear discharge, ear drainage, ear pain, ear ringing, eye pain, eye redness, hearing loss, mouth pain, mouth swelling, nasal discharge, nose bleeding, nose pain, photophobia, tearing, throat pain, throat swelling, voice changes, others Respiratory: reports: cough; denies: hemoptysis, orthopnea, SOB at rest, shortness of breath, SOB with excertion, stridor, wheezing, others Cardiovascular: denies: chest pain, dizzy spells, diaphoresis, Dyspnea on exertion, edema, irregular heart beat, left arm pain, lightheadedness, palpitations, PND, syncope, others Gastrointestinal: denies: abdomen distended, abdominal pain, blood streaked bowels, constipated, diarrhea, dysphagia, difficulty swallowing, hematemesis, melena, nausea, poor appetite, poor fluid intake, rectal bleeding, rectal pain, vomiting, others Genitourinary: denies: abnormal vagina bleeding, burning, dyspareunia, dysuria, flank pain, frequency, hematuria, incontinence, pain, , vagina discharge, urgency, others Neurological: denies: dizziness, fainting, headache, left sided numbness, left sided weakness, numbness, paresthesia, pre-existing deficit, right sided numbness, right sided weakness, seizure, speech problems, tingling, tremors, weakness, others Musculoskeletal: denies: back pain, gout, joint pain, joint swelling, muscle pain, muscle stiffness, neck pain, others Integumetry: denies: bruises, change in color, change in hair/nails, dryness, laceration, lesions, lumps, rash, wounds, others Allergic/Immunocompromised: denies: Difficulty Healing, Frequent Infections, Hives, Itching, others Hematologic/Lymphatic: denies: anemia, blood clots, easy bleeding, easy bruising, swollen glands, others Endocrine: denies: excessive hunger, excessive sweating, excessive thirst, excessive urination, flushing, intolerance to cold, intolerance to heat, unexplained weight gain, unexplained weight loss, others Psychiatric: denies: anxiety, bipolar disorder, depression, hopeless, panic disorder, schizophrenia, sleepless, suicidal, others All Other Systems: Reviewed and Negative Physical Exam General Appearance: Moderate Distress (Patient appears to be in [id number] distress due to her cough and congestion concerns.), Obese HEENT: Normal ENT Inspection, Pharynx Normal, TMs Normal Neck: Full Range of Motion, Non-Tender, Normal, Normal Inspection Respiratory: Chest Non-Tender, Lungs Clear, No Accessory Muscle Use, No Respiratory Distress, Normal Breath Sounds, Other (Unremarkable auscultation bilateral lung ovalle.) Cardiovascular: No Edema, No JVD, No Murmur, No Gallop, Normal Peripheral Pulses, Regular Rate/Rhythm Breast Exam: Deferred Gastrointestinal: No Organomegaly, Non Tender, No Pulsatile Mass, Normal Bowel Sounds, Soft Genitalia: Deferred Pelvic: Deferred Rectal: Deferred Extremities: No calf tenderness, Normal capillary refill, Normal inspection, Normal range of motion, Non-tender, No pedal edema Musculoskeletal : Apperance: Normal Neurologic: Alert, No Motor Deficits, Normal Affect, Normal Mood, No Sensory Deficits Cerebellar Function: Normal Reflexes: Normal Skin: Dry, Normal Color, Warm Lymphatic: No Adenopathy Was a procedure done? Was a procedure done?: No Differential Dx Considerations may include: URI, Viral Syndrome, Bronchitis, PNA, influenza a/B, COVID-19 X-Ray, Labs, Meds, VS Vital Signs Date Time Temp Pulse Resp B/P (MAP) Pulse Ox O2 Delivery O2 Flow Rate FiO2 02/25/24 16:47 98.2 75 18 129/68 (88) 99 98.2 02/25/24 16:47 75 18 99 Room Air 02/25/24 14:19 98.8 94 20 113/68 (83) 97 Lab Test 02/25/24 17:21 Range/Units Influenza Type A Antigen Pending Influenza Type B Antigen Pending SARS-CoV-2 Antigen (Rapid) Pending [place] [id number] Ph: [phone] DIAGNOSTIC IMAGING Diagnostic Imaging Report : [id number] Signed PATIENT: NIR KAN ACCT: [id number] UNIT: [id number] : 1965 LOC: ER ROOM / BED: / AGE / SEX: 58 / F ADM STATUS: REG ER SERVICE 1515 ORDERING PHYSICIAN: BRIJESH SCHMITT PAC PROCEDURE(s): CXR2 - CHEST TWO VIEWS ROUTINE REASON: Shortness of breath ORDER NUMBER(s): [id number], ACCESSION NUMBER(s): [id number] XY CHEST TWO VIEWS ROUTINE CLINICAL HISTORY: Shortness of breath COMPARISON: XY CHEST TWO VIEWS ROUTINE on DOS: 01/25/24 TECHNIQUE: Frontal and lateral view of the chest was obtained FINDINGS: Lines and Tubes: None Lungs: No focal consolidation. Pleura: No effusion. No pneumothorax. Cardiomediastinal contours: Unremarkable Bones: No acute osseous abnormality. IMPRESSION: No acute cardiopulmonary disease. ATED BY: SOPHIA GLORIA DO DICTATED DATE/TIME: 02/25/241533 SIGNED BY: SOPHIA GLORIA DO SIGNED DATE/TIME: 02/25/241533 CC: X-Ray, Labs, Meds, VS Comment I attempted to advise the patient of her chest x-ray findings multiple times, but it appears the patient has eloped from the facility. Time of 1ST Reevaluation: 18:23 Reevaluation 1ST: Unchanged Consultation: PCP Patient Education/Counseling: Diagnosis, Treatment, Prognosis Family Education/Counseling: Diagnosis, Treatment, No Family Present Departure 1 Departure Time of Disposition: 18:23 Impression: Primary Impression: Viral upper respiratory illness Disposition: LEFT AWOL/ELOPED Condition: Stable Discharged With: Self Critical Care Note Critical Care Time?: No Stability Stability form required: No I personally scribed for BRIJESH SCHMITT PAC ([email or web address]) on 02/25/24 at 15:39. Electronically submitted by Allison Jaeger ([facility]). I personally scribed for BRIJESH SCHMITT PAC ([email or web address]) on 02/25/24 at 17:38. Electronically submitted by Allison Jaeger ([facility]). BRIJESH SCHMITT PAC Feb 25, 2024 15:39
[2024-02-25] MEDS: DexAMETHasone SOD PHOS 10MG/1ML VIAL INJ IM ONE (16:44)
[2024-02-25 16:47] VITALS: BP 129/68; PULSE 75; RESP 18; TEMP 98.2; O2SAT 99
[2024-02-25 18:54] LABS: COVID19 ANTIGEN SOFIA FIA NEGATIVE (NEGATIVE); Rapid Influenza A Negative (Negative); Rapid Influenza B Negative (Negative)
== END 2024-02-25 18:17 | disposition left against medical advice (07) ==
LOC: ER 14:19
DX: J06.9 Acute upper respiratory infection, unspecified (principal); B97.89 Other viral agents as the cause of diseases classified elsewhere; J44.89 Other specified chronic obstructive pulmonary disease; F17.210 Nicotine dependence, cigarettes, uncomplicated; M19.90 Unspecified osteoarthritis, unspecified site; Z88.0 Allergy status to penicillin; Z90.710 Acquired absence of both cervix and uterus; Z20.822 Contact with and (suspected) exposure to COVID-19
CPT/HCPCS: 36415; 71046; 87426; 87804

== ENCOUNTER 2024-05-27 07:05 | Emergency (ER) | payer MEDICAID ==
[~2024-05-27] VITALS: Ht 157.5 cm; Wt 88.7 kg
[2024-05-27 07:48] VITALS: BP 128/69; PULSE 90; RESP 20; TEMP 98.2; O2SAT 97
--- NOTE | 2024-05-27 07:55 | DVH ---
Procedure: XY CHEST TWO VIEWS ROUTINE 05/27/2024 07:30 AM Indication: COUGH Comparison: XY CHEST TWO VIEWS ROUTINE on DOS: 02/25/24, XY CHEST TWO VIEWS ROUTINE on DOS: 01/25/24 TECHNIQUE: XY CHEST TWO VIEWS ROUTINE FINDINGS: Medical devices: None. Cardiomediastinal: The heart is normal in size. Pulmonary vasculature is within normal limits. Athero sclerotic calcification of the aortic arch noted. Lungs: No focal pulmonary opacity is seen. The costophrenic angles are clear. No pneumothorax. Bones/soft tissues: No acute abnormality is noted. IMPRESSION: 1. No acute cardiopulmonary disease.
--- NOTE | 2024-05-27 08:01 | ED.PDOC ---
SOB-HPI HPI Comments A 58 YEAR OLD FEMALE PRESENTS TO THE ED WITH COMPLAINT OF COUGH AND SORE THROAT. PATIENT STATES SHE HAS BEEN EXPERIENCING A COUGH, CONGESTION, SORE THROAT, BODY ACHES, AND EAR PAIN THAT STARTED YESTERDAY NIGHT. PATIENT DENIES FEVER, CHILLS, SHORTNESS OF BREATH, CHEST PAIN, ABDOMINAL PAIN, NAUSEA, VOMITING, HEADACHE, OR OTHER COMPLAINTS. NO OTHER SYMPTOMS OR MODIFYING FACTORS AT THIS TIME. PATIENT IS ALERT, ORIENTED X 4, AND HAS STEADY GAIT. 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 Hx Family History Family History: Reviewed,noncontributory to illness Social History Smoker: Cigarettes, Less Than 1 Pack/Day Alcohol: Occasionally Drugs: Denies Drug Use Lives In: Home Constitutional: denies: chills, diaphoresis, fatigue, fever, malaise, sweats, weakness, others EENTM: reports: nose congestion, throat pain, throat swelling; denies: blurred vision, double vision, ear bleeding, ear discharge, ear drainage, ear pain, ear ringing, eye pain, eye redness, hearing loss, mouth pain, mouth swelling, nasal discharge, nose bleeding, nose pain, photophobia, tearing, voice changes, others Respiratory: reports: cough; denies: hemoptysis, orthopnea, SOB at rest, shortness of breath, SOB with excertion, stridor, wheezing, others Cardiovascular: denies: chest pain, dizzy spells, diaphoresis, Dyspnea on exertion, edema, irregular heart beat, left arm pain, lightheadedness, palpitations, PND, syncope, others Gastrointestinal: denies: abdomen distended, abdominal pain, blood streaked bowels, constipated, diarrhea, dysphagia, difficulty swallowing, hematemesis, m joanna, nausea, poor appetite, poor fluid intake, rectal bleeding, rectal pain, vomiting, others Genitourinary: denies: abnormal vagina bleeding, burning, dyspareunia, dysuria, flank pain, frequency, hematuria, incontinence, pain, , vagina discharge, urgency, others Neurological: denies: dizziness, fainting, headache, left sided numbness, left sided weakness, numbness, paresthesia, pre-existing deficit, right sided numbness, right sided weakness, seizure, speech problems, tingling, tremors, weakness, others Musculoskeletal: reports: muscle pain; denies: back pain, gout, joint pain, joint swelling, muscle stiffness, neck pain, others Integumetry: denies: bruises, change in color, change in hair/nails, dryness, laceration, lesions, lumps, rash, wounds, others Allergic/Immunocompromised: denies: Difficulty Healing, Frequent Infections, Hives, Itching, others Hematologic/Lymphatic: denies: anemia, blood clots, easy bleeding, easy bruising, swollen glands, others Endocrine: denies: excessive hunger, excessive sweating, excessive thirst, excessive urination, flushing, intolerance to cold, intolerance to heat, unexplained weight gain, unexplained weight loss, others Psychiatric: denies: anxiety, bipolar disorder, depression, hopeless, panic disorder, schizophrenia, sleepless, suicidal, others All Other Systems: Reviewed and Negative Physical Exam General Appearance: No Apparent Distress, Normal HEENT: PERRL/EOMI, Pharyngeal Erythema (TONSILLAR SWELLING, NO EXUDATES. ), TMs Normal Neck: Full Range of Motion, Non-Tender, Normal, Normal Inspection Respiratory: Chest Non-Tender, Lungs Clear, No Accessory Muscle Use, No Respiratory Distress, Normal Breath Sounds Cardiovascular: No Edema, No JVD, No Murmur, No Gallop, Normal Peripheral Pulses, Regular Rate/Rhythm Breast Exam: Deferred Gastrointestinal: No Organomegaly, Non Tender, No Pulsatile Mass, Normal Bowel Sounds, Soft Genitalia: Deferred Pelvic: Deferred Rectal: Deferred Extremities: No calf tenderness, Normal capillary refill, Normal inspection, Normal range of motion, Non-tender, No pedal edema Musculoskeletal : Apperance: Normal Neurologic: Alert, metal tester II-XII nml as Tested, No Motor Deficits, Normal Affect, Normal Mood, No Sensory Deficits Cerebellar Function: Normal Reflexes: Normal Skin: Dry, Normal Color, Warm Peripheral Pulses: 2+ carotid (R), 2+ carotid (L) Lymphatic: No Adenopathy Was a procedure done? Was a procedure done?: No Differential Dx Differential Diagnosis: Bronchitis, Pneumonia, Sinusitis, Allergic Rhinitis, Otitis Media, Pharyngitis, URI X-Ray, Labs, Meds, VS Vital Signs Date Time Temp Pulse Resp B/P (MAP) Pulse Ox O2 Delivery O2 Flow Rate FiO2 05/27/24 07:48 98.2 90 20 128/69 (88) 97 98.2 05/27/24 07:48 90 20 97 05/27/24 07:31 16 97 Room Air* 0 21 05/27/24 07:26 98.2 90 20 128/69 (88) 97 98.2 Procedure: XY CHEST TWO VIEWS ROUTINE 05/27/2024 07:30 AM Indication: COUGH Comparison: XY CHEST TWO VIEWS ROUTINE on DOS: 02/25/24, XY CHEST TWO VIEWS ROUTINE on DOS: 01/25/24 TECHNIQUE: XY CHEST TWO VIEWS ROUTINE FINDINGS: Medical devices: None. Cardiomediastinal: The heart is normal in size. Pulmonary vasculature is within normal limits. Atherosclerotic calcification of the aortic arch noted. Lungs: No focal pulmonary opacity is seen. The costophrenic angles are clear. No pneumothorax. Bones/soft tissues: No acute abnormality is noted. IMPRESSION: 1. No acute cardiopulmonary disease. ATED BY: CECI LEONARD MD DICTATED DATE/TIME: 05/27/24 075 SIGNED BY: CECI LEONARD MD SIGNED DATE/TIME: 05/27/24751 CC: X-Ray, Labs, Meds, VS Comment EXTERNAL MEDICAL RECORDS REVIEWED: [NONE] INDEPENDENT HISTORIANS: [NONE] SOCIAL DETERMINANTS OF HEALTH: [NONE] LABS ORDERED: NONE REVIEWED AND INTERPRETED RESULTS: NONE IMAGING ORDERED: XR CHEST TREATMENTS ORDERED: PROCEDURES PERFORMED: NONE CRITICAL CARE TIME: NONE I HAVE DISCUSSED THE PATIENT WITH THE ATTENDING PHYSICIAN DR. DAHL AND CAMMIE NUNEZ WITH THE PATIENT'S PLAN OF CARE AND DISPOSITION. BASED ON HISTORY OF PRESENT ILLNESS, AND PHYSICAL EXAM, PATIENT WILL BE DISCHARGED HOME. DISCUSSED PLAN FOR DISCHARGE HOME WITH RX [KEFLEX]. MEDICATION WARNINGS GIVEN. SHARED DECISION MAKING: PATIENT INSTRUCTED TO FOLLOW UP WITH PRIMARY CARE PROVIDER IN 1-2 DAYS FOR RE-EVALUATION OF SYMPTOMS. PATIENT VERBALIZES UNDERSTANDING TO RETURN TO ED FOR NEW OR WORSENING SYMPTOMS OR IF FOLLOW UP WITH PCP CANNOT BE OBTAINED. PATIENT FEELS COMFORTABLE GOING HOME AT THIS TIME. ALL QUESTIONS ADDRESSED AT TIME OF DISCHARGE. Images Reviewed?: Images reviewed and evaluated by me Time of 1ST Reevaluation: 08:10 Reevaluation 1ST: Improved Patient Education/Counseling: Diagnosis, Treatment, Need For Follow Up Family Education/Counseling: Diagnosis, Treatment, Need For Follow Up Medical Screening: No EMC Exist At This Time Departure 1 Departure Time of Disposition: 08:10 Impression: Primary Impression: Acute tonsillitis Qualified Codes: J03.90 - Acute tonsillitis, unspecified Additional Impression: Upper respiratory infection Qualified Codes: J03.90 - Acute tonsillitis, unspecified Disposition: 01 HOME / SELF CARE / HOMELESS Condition: Stable Additional Instructions: FOLLOW-UP WITH PCP IN 1 TO 2 DAYS. TAKE MEDICATIONS PRESCRIBED. RETURN TO ED FOR ANY NEW OR WORSENING SYMPTOMS. e-Prescriptions Promethazine-Dm (Promethazine Dm 6.25-15 mg/5Ml) 1 Davida Davida 5 ML PO TID, #150 ML Prov: SUNDAY TIRADO 05/27/24 Cephalexin Monohydrate (Cephalexin) 500 Mg Cap 1 CAP PO QID, #28 CAP Prov: SUNDAY TIRADO 05/27/24 Discharged With: Self Critical Care Note Critical Care Time?: No Stability Stability form required: No Heart Score Heart Score: Heart Score Response (Comments) Value History N/A 0 EKG N/A 0 Age N/A 0 Risk Factors N/A 0 Troponin N/A 0 Total 0 I personally scribed for SUNDAY TIRADO ([email or web address]) on 05/27/24 at 08:01. Electronically submitted by Yifan Duval ([email or web address]). I personally scribed for SUNDAY TIRADO ([email or web address]) on 05/27/24 at 08:02. Electronically submitted by Yifan Duval ([email or web address]). SUNDAY TIRADO May 27, 2024 08:01
[2024-05-27] MEDS ORDERED: CEPH500C PO (08:02)
== END 2024-05-27 08:15 | disposition home or self-care (01) ==
LOC: ER 07:10
DX: J03.90 Acute tonsillitis, unspecified (principal); J06.9 Acute upper respiratory infection, unspecified; J44.9 Chronic obstructive pulmonary disease, unspecified; F17.210 Nicotine dependence, cigarettes, uncomplicated; Z90.710 Acquired absence of both cervix and uterus
CPT/HCPCS: 71046

== ENCOUNTER 2025-02-01 11:40 | Emergency (ER) | payer MEDICAID ==
[~2025-02-01] VITALS: Ht 157.5 cm; Wt 81.3 kg
[~2025-02-01 11:40] MED LIST changes: +CEPH500C PO
--- NOTE | 2025-02-01 12:33 | DVH ---
CHEST RADIOGRAPH Indication: COUGH Technique: Frontal and lateral view of the chest was obtained Comparison: XY CHEST TWO VIEWS ROUTINE on DOS: 05/27/24, XY CHEST TWO VIEWS ROUTINE on DOS: 02/25/24, XY CHEST TWO VIEWS ROUTINE on DOS: 01/25/24, CHEST XRAY 1 VIEW on DOS: 03/13/22, CXR1 on DOS: 03/13/22 FINDINGS: Lines and Tubes: None Lungs: Mild increased interstitial prominence. Pleura: No effusion. No pneumothorax. Cardiomediastinal contours: Unremarkable Bones: Unremarkable IMPRESSION: Increased interstital prominence. This may represent pulmonary vascular congestion and/or viral pneumonia. Clinical correlation advised.
--- NOTE | 2025-02-01 13:01 | ED.PDOC ---
SOB-HPI HPI Comments A 59 YEAR OLD FEMALE PRESENTS TO THE ED WITH COMPLAINT OF COUGH. PT HAS BEEN HAVING COUGH, CONGESTION AND SORE THROAT FOR THE PAST 1X WEEK. PT HAS SICK CONTACT WITH GRANDSON. PATIENT DENIES FEVER, CHILLS, SHORTNESS OF BREATH, CHEST PAIN, ABDOMINAL PAIN, NAUSEA, VOMITING, HEADACHE, OR OTHER COMPLAINTS. NO OTHER SYMPTOMS OR MODIFYING FACTORS AT THIS TIME. PATIENT IS ALERT, ORIENTED X 4, AND HAS STEADY GAIT. 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 FIRE CHIEF'S AIDE Hx Family History Family History: Reviewed,noncontributory to illness Social History Smoker: Cigarettes, Less Than 1 Pack/Day Alcohol: Occasionally Drugs: Denies Drug Use Lives In: Home Constitutional: denies: chills, diaphoresis, fatigue, fever, malaise, sweats, weakness, others EENTM: reports: nose congestion, throat pain; denies: blurred vision, double vision, ear bleeding, ear discharge, ear drainage, ear pain, ear ringing, eye pain, eye redness, hearing loss, mouth pain, mouth swelling, nasal discharge, nose bleeding, nose pain, photophobia, tearing, throat swelling, voice changes, others Respiratory: reports: cough; denies: hemoptysis, orthopnea, SOB at rest, shortness of breath, SOB with excertion, stridor, wheezing, others Cardiovascular: denies: chest pain, dizzy spells, diaphoresis, Dyspnea on exertion, edema, irregular heart beat, left arm pain, lightheadedness, palpitations, PND, syncope, others Gastrointestinal: denies: abdomen distended, abdominal pain, blood streaked bowels, constipated, diarrhea, dysphagia, difficulty swallowing, hematemesis, melena, nausea, poor appetite, poor fluid intake, rectal bleeding, rectal pain, vomiting, others Genitourinary: denies: abnormal vagina bleeding, burning, dyspareunia, dysuria, flank pain, frequency, hematuria, incontinence, pain, , vagina discharge, urgency, others Neurological: denies: dizziness, fainting, headache, left sided numbness, left sided weakness, numbness, paresthesia, pre-existing deficit, right sided numbness, right sided weakness, seizure, speech problems, tingling, tremors, weakness, others Musculoskeletal: denies: back pain, gout, joint pain, joint swelling, muscle pain, muscle stiffness, neck pain, others Integumetry: denies: bruises, change in color, change in hair/nails, dryness, laceration, lesions, lumps, rash, wounds, others Allergic/Immunocompromised: denies: Difficulty Healing, Frequent Infections, Hives, Itching, others Hematologic/Lymphatic: denies: anemia, blood clots, easy bleeding, easy bruising, swollen glands, others Endocrine: denies: excessive hunger, excessive sweating, excessive thirst, excessive urination, flushing, intolerance to cold, intolerance to heat, unexplained weight gain, unexplained weight loss, others Psychiatric: denies: anxiety, bipolar disorder, depression, hopeless, panic disorder, schizophrenia, sleepless, suicidal, others All Other Systems: Reviewed and Negative Physical Exam General Appearance: No Apparent Distress, Normal HEENT: PERRL/EOMI, Pharyngeal Erythema (VESICLE PHARYNX, NO EXUDATES. ), TMs Normal Neck: Full Range of Motion, Non-Tender, Normal, Normal Inspection Respiratory: Chest Non-Tender, Expiration, No Accessory Muscle Use, No Respiratory Distress, Rhonchi Cardiovascular: No Edema, No JVD, No Murmur, No Gallop, Normal Peripheral Pulses, Regular Rate/Rhythm Breast Exam: Deferred Gastrointestinal: No Organomegaly, Non Tender, No Pulsatile Mass, Normal Bowel Sounds, Soft Genitalia: Deferred Pelvic: Deferred Rectal: Deferred Extremities: No calf tenderness, Normal capillary refill, Normal inspection, Normal range of motion, Non-tender, No pedal edema Musculoskeletal : Apperance: Normal Neurologic: Alert, nursing associate II-XII nml as Tested, No Motor Deficits, Normal Affect, Normal Mood, No Sensory Deficits Cerebellar Function: Normal Reflexes: Normal Skin: Dry, Normal Color, Warm Peripheral Pulses: 2+ carotid (R), 2+ carotid (L) Lymphatic: No Adenopathy Was a procedure done? Was a procedure done?: No Differential Dx Differential Diagnosis: Bronchitis, Pneumonia, Respiratory Distress, Sinusitis, Allergic Rhinitis, Pharyngitis, URI X-Ray, Labs, Meds, VS Vital Signs Date Time Temp Pulse Resp B/P (MAP) Pulse Ox O2 Delivery O2 Flow Rate FiO2 02/01/25 13:07 82 16 96 Room Air 02/01/25 13:07 98.2 82 16 135/82 (99) 96 98.2 02/01/25 11:48 98.2 82 16 135/82 96 98.2 PATIENT: NIR KAN RACCT: [id number]: [id number] : 1965 LOC: ER ROOM / BED: / AGE / SEX: 59 / F ADM STATUS: [facility] ER SERVICE 1201 ORDERING PHYSICIAN: SUNDAY TIRADO PROCEDURE(s): CXR2 - CHEST TWO VIEWS ROUTINE REASON: COUGH ORDER NUMBER(s): [id number], ACCESSION NUMBER(s): [id number] CHEST RADIOGRAPH Indication: COUGH Technique: Frontal and lateral view of the chest was obtained Comparison: XY CHEST TWO VIEWS ROUTINE on DOS: 05/27/24, XY CHEST TWO VIEWS ROUTINE on DOS: 02/25/24, XY CHEST TWO VIEWS ROUTINE on DOS: 01/25/24, CHEST XRAY 1 VIEW on DOS: 03/13/22, CXR1 on DOS: 03/13/22 FINDINGS: Lines and Tubes: None Lungs: Mild increased interstitial prominence. Pleura: No effusion. No pneumothorax. Cardiomediastinal contours: Unremarkable Bones: Unremarkable IMPRESSION: Increased interstital prominence. This may represent pulmonary vascular congestion and/or viral pneumonia. Clinical correlation advised. ATED BY: CARLOS PIRES MD DICTATED DATE/TIME: 02/01/25 123 SIGNED BY: CARLOS PIRES MD SIGNED DATE/TIME: 02/01/25 123 CC: X-Ray, Labs, Meds, VS Comment COURSE: EXTERNAL MEDICAL RECORDS REVIEWED: [NONE] INDEPENDENT HISTORIANS: [NONE] SOCIAL DETERMINANTS OF HEALTH: [NONE] LABS ORDERED: NONE REVIEWED AND INTERPRETED RESULTS: NONE IMAGING ORDERED: CHEST X-RAY TREATMENTS ORDERED: PROCEDURES PERFORMED: NONE CRITICAL CARE TIME: NONE I HAVE DISCUSSED THE PATIENT WITH THE ATTENDING PHYSICIAN AND HE AGREES WITH THE PATIENT'S PLAN OF CARE AND DISPOSITION. BASED ON HISTORY OF PRESENT ILLNESS, AND PHYSICAL EXAM, PATIENT WILL BE DISCHARGED HOME. DISCUSSED PLAN FOR DISCHARGE HOME WITH RX []. MEDICATION WARNINGS GIVEN. SHARED DECISION MAKING: DISCUSSED WITH PATIENT THAT THEIR WORKUP WAS NORMAL. PATIENT INSTRUCTED TO FOLLOW UP WITH PRIMARY CARE PROVIDER IN 1-2 DAYS FOR RE- EVALUATION OF SYMPTOMS. PATIENT VERBALIZES UNDERSTANDING TO RETURN TO ED FOR NEW OR WORSENING SYMPTOMS OR IF FOLLOW UP WITH PCP CANNOT BE OBTAINED. PATIENT FEELS COMFORTABLE GOING HOME AT THIS TIME. ALL QUESTIONS ADDRESSED AT TIME OF DISCHARGE. Time of 1ST Reevaluation: 13:16 Reevaluation 1ST: Improved Patient Education/Counseling: Diagnosis, Treatment, Need For Follow Up Family Education/Counseling: Diagnosis, Treatment, Need For Follow Up Medical Screening: No EMC Exist At This Time SEPSIS Sepsis Screen Date sepsis recognized/suspect: Feb 01, 2025 Time Sepsis recognized/suspect: 1150 Recent Procedure: No On Antibiotic Therapy: No Respiratory Rate >20: No Heart Rate >90: No Temp<36 C (96.8 F) or >38.3 C: No SBP <90 or MAP <65 mmHG: No New Acute Mental Status Change: No Is the patient on CPAP, BIPAP,: No Physician Orders Chest Two Views Routine (02/01/25 12:01) Vital Signs Date Time Temp Pulse Resp B/P (MAP) Pulse Ox O2 Delivery O2 Flow Rate FiO2 02/01/25 13:07 82 16 96 Room Air 02/01/25 13:07 98.2 82 16 135/82 (99) 96 98.2 02/01/25 11:48 98.2 82 16 135/82 96 98.2 Departure 1 Departure Time of Disposition: 13:16 Impression: Primary Impression: COPD with acute bronchitis Additional Impression: Acute pharyngitis Qualified Codes: J02.9 - Acute pharyngitis, unspecified Disposition: HOME / SELF CARE / HOMELESS Condition: Stable Additional Instructions: INSTRUCTIONS: FOLLOW-UP WITH PCP IN 1 TO 2 DAYS. TAKE MEDICATIONS PRESCRIBED. RETURN TO ED FOR ANY NEW OR WORSENING SYMPTOMS. e-Prescriptions Methylprednisolone (Medrol Dosepak) 4 Mg Devonte 4 MG PO UD, #21 TAB UAD Prov: SUNDAY TIRADO 02/01/25 Ciprofloxacin Hcl (Cipro) 500 Mg Tab 1 TAB PO BID, #20 TAB Prov: SUNDAY TIRADO 02/01/25 Promethazine-Dm (Promethazine Dm 6.25-15 mg/5Ml) 1 Davida Davida 7 ML PO TID, #160 ML Prov: SUNDAY TIRADO 02/01/25 Discharged With: Self Critical Care Note Critical Care Time?: No Stability Stability form required: No Heart Score Heart Score: Heart Score Response (Comments) Value History N/A 0 EKG N/A 0 Age N/A 0 Risk Factors N/A 0 Troponin N/A 0 Total 0 I personally scribed for SUNDAY TIRADO ([email or web address]) on 02/01/25 at 13:01. Electronically submitted by Gulshan Mack ([email or web address]). SUNDAY TIRADO Feb 01, 2025 13:01
[2025-02-01 13:07] VITALS: BP 135/82; PULSE 82; RESP 16; TEMP 98.2; O2SAT 96
[2025-02-01] MEDS ORDERED: CIPR-173 PO (13:09)
[2025-02-01] MEDS ORDERED: METH4PAK PO (13:09)
== END 2025-02-01 13:17 | disposition home or self-care (01) ==
LOC: ER 11:40
DX: J44.89 Other specified chronic obstructive pulmonary disease (principal); J02.9 Acute pharyngitis, unspecified; F17.210 Nicotine dependence, cigarettes, uncomplicated; F10.90 Alcohol use, unspecified, uncomplicated; M19.90 Unspecified osteoarthritis, unspecified site; Z90.710 Acquired absence of both cervix and uterus
CPT/HCPCS: 71046

== ENCOUNTER 2025-02-27 06:29 | Emergency (ER) | payer MEDICAID ==
[~2025-02-27] VITALS: Ht 157.5 cm; Wt 80.0 kg
[~2025-02-27 06:29] MED LIST changes: -CEPH-509 PO; -CEPH500C PO; +CIPR-173 PO; +METH4PAK PO
--- NOTE | 2025-02-27 07:49 | ED.PDOC ---
General HPI Comments 59 yr F w/ no pertinent hx presents for possible urinary tract infection. Symptoms began approximately 1 day before this visit and include burning with urination, increased urinary frequency, urinary incontinence requiring frequent changing and cleaning, and tingling sensations including through the fingers. The patient reports that urination is painful and more frequent than normal. No history of diabetes or hypertension is reported. Chief Complaint: Urinary Time Seen by MD: 07:45 Primary Care Provider: LD PARSONS Reviewed notes: Nurses Notes, Medications, Allergies Allergies: Coded Allergies: Penicillins (Verified Allergy, Unknown, 07/13/21) Home Meds Active Scripts Methylprednisolone (Medrol Dosepak) 4 Mg Devonte, 4 MG PO UD, #21 TAB UAD Prov:SUNDAY TIRADO 02/01/25 Ciprofloxacin Hcl (Cipro) 500 Mg Tab, 1 TAB PO BID, #20 TAB Prov:SUNDAY TIRADO 02/01/25 Promethazine-Dm (Promethazine Dm 6.25-15 mg/5Ml) 1 Davida Davida, 7 ML PO TID, #160 ML Prov:SUNDAY TIRADO 02/01/25 Promethazine-Dm (Promethazine Dm 6.25-15 mg/5Ml) 1 Davida Davida, 5 ML PO TID, #150 ML Prov:SUNDAY TIRADO 05/27/24 Guaifenesin (Mucinex) 600 Mg Tab, 1 TAB PO BID for 7 Days, #14 TAB 0 Refills Prov:DUANE CUENCA NP 01/25/24 Benzonatate (Benzonatate) 100 Mg Cap, 1 CAP PO TID for 10 Days, #30 CAP 0 Refills Prov:DUANE CUENCA NP 01/25/24 Azithromycin (Azithromycin) 250 Mg Tab, 250 MG PO DAILY MDD 500 for 5 Days, #6 TAB 0 Refills 2 TABLETS ORALLY ON DAY ONE, THEN 1 TABLET ORALLY DAILY FOR 4 DAYS Prov:DUANE CUENCA NP 01/25/24 Albuterol Sulfate (Albuterol Sulfate Hfa) 108 Mcg/Act Aer, 108 MCG IN Q4HP PRN for 7 Days, #1 AER Prov:GRIS HERNANDEZ DENTURE MODEL MAKER 01/17/24 Azelastine Hcl-Fluticasone Pro (DYMISTA) 1 Spr Spr, 1 SPRAY NA BID for 7 Days, #23 GRAMS 6 Refills Prov:GRIS HERNANDEZ DENTURE MODEL MAKER 01/17/24 Amoxicillin & Pot Clavulanate (AUGMENTIN TABLET) 875 Mg Tb, 875 MG PO BID for 10 Days, #20 TAB Prov:GRIS HERNANDEZ DENTURE MODEL MAKER 01/17/24 Promethazine-Dm (Promethazine Dm 6.25-15 mg/5Ml) 1 Davida Davida, 1 DAVIDA PO TID PRN for 7 Days, #120 ML Prov:GRIS HERNANDEZ DENTURE MODEL MAKER 01/17/24 Nitrofurantoin Monohydrate Mac (Macrobid) 100 Mg Cap, 100 MG PO BID for 5 Days, #10 CAP 0 Refills Prov:DUANE CUENCA WOOD EXPERIMENTAL MECHANIC 06/24/23 Promethazine-Dm (Promethazine Dm 6.25-15 mg/5Ml) 1 Davida Davida, 5 ML PO TID, #150 ML Prov:SUNDAY TIRADO 03/13/22 Azithromycin (Azithromycin) 500 Mg Tab, 1 TAB PO DAILY, #5 TAB Prov:SUNDAY TIRADO 03/13/22 Epinephrine (Epinephrine) 0.3 Mg/0.3 Ml Inj, 0.3 MG IJ PRN for 365 Days, #1 INJ Prov:HAYLIE DERAS MD 12/23/21 Reported Medications Oxycodone W/ Acetaminophen (Percocet 5/325MG) 1 Tab Tb, 1 TAB PO TID, #90 TAB Patient actually takes Percocet 10/325 PO TID per patient report. Hospital only stocks 5/325. 05/16/23 Gabapentin (Gabapentin) 800 Mg Tab, 800 MG PO QID, TAB 05/16/23 Lurasidone Hydrochloride (LATUDA) 40 Mg Tab, 30 MG PO DAILY, TAB 05/16/23 Information Source: Patient Mode of Arrival: Ambulatory Severity: Moderate Timing: Hours Duration: Since onset, Hours Prehospital treatment: None Onset: Spontaneous Symptoms: Dysuria, None History of: UTI Location: None associated signs and symptoms: Dysuria Past Medical History PAST MEDICAL HISTORY: Arthritis, Asthma, COPD, Depression, UTI'S Surgical History: Hysterectomy KETTLEMAN History: Denies all KETTLEMAN Hx Family History Family History: Reviewed,noncontributory to illness, Unknown Social History Smoker: Cigarettes, Less Than 1 Pack/Day Alcohol: Occasionally Drugs: Denies Drug Use Lives In: Home Constitutional: denies: chills, diaphoresis, fatigue, fever, malaise, sweats, weakness, others EENTM: denies: blurred vision, double vision, ear bleeding, ear discharge, ear drainage, ear pain, ear ringing, eye pain, eye redness, hearing loss, mouth pain, mouth swelling, nasal discharge, nose bleeding, nose congestion, nose pain, photophobia, tearing, throat pain, throat swelling, voice changes, others Respiratory: denies: cough, hemoptysis, orthopnea, SOB at rest, shortness of breath, SOB with excertion, stridor, wheezing, others Cardiovascular: denies: chest pain, dizzy spells, diaphoresis, Dyspnea on exertion, edema, irregular heart beat, left arm pain, lightheadedness, palpitations, PND, syncope, others Gastrointestinal: denies: abdomen distended, abdominal pain, blood streaked bowels, constipated, diarrhea, dysphagia, difficulty swallowing, hematemesis, melena, nausea, poor appetite, poor fluid intake, rectal bleeding, rectal pain, vomiting, others Genitourinary: reports: dysuria; denies: abnormal vagina bleeding, burning, dyspareunia, flank pain, frequency, hematuria, incontinence, pain, , vagina discharge, urgency, others Neurological: denies: dizziness, fainting, headache, left sided numbness, left sided weakness, numbness, paresthesia, pre-existing deficit, right sided numbness, right sided weakness, seizure, speech problems, tingling, tremors, w eakness, others Musculoskeletal: denies: back pain, gout, joint pain, joint swelling, muscle pain, muscle stiffness, neck pain, others Integumetry: denies: bruises, change in color, change in hair/nails, dryness, laceration, lesions, lumps, rash, wounds, others Allergic/Immunocompromised: denies: Difficulty Healing, Frequent Infections, Hives, Itching, others Hematologic/Lymphatic: denies: anemia, blood clots, easy bleeding, easy bruising, swollen glands, others Endocrine: denies: excessive hunger, excessive sweating, excessive thirst, excessive urination, flushing, intolerance to cold, intolerance to heat, unexplained weight gain, unexplained weight loss, others Psychiatric: denies: anxiety, bipolar disorder, depression, hopeless, panic disorder, schizophrenia, sleepless, suicidal, others All Other Systems: Reviewed and Negative Physical Exam Exam Comments CVA tenderness negative General Appearance: No Apparent Distress, Normal HEENT: Normal ENT Inspection, Pharynx Normal, TMs Normal Neck: Full Range of Motion, Non-Tender, Normal, Normal Inspection Respiratory: Chest Non-Tender, Lungs Clear, No Accessory Muscle Use, No Respiratory Distress, Normal Breath Sounds Cardiovascular: No Edema, No JVD, No Murmur, No Gallop, Normal Peripheral Pulses, Regular Rate/Rhythm Breast Exam: Deferred Gastrointestinal: No Organomegaly, Non Tender, No Pulsatile Mass, Normal Bowel Sounds, Soft Genitalia: Deferred Pelvic: Deferred Rectal: Deferred Extremities: No calf tenderness, Normal capillary refill, Normal inspection, Normal range of motion, Non-tender, No pedal edema Musculoskeletal : Apperance: Normal Neurologic: Alert, harness inspector II-XII nml as Tested, No Motor Deficits, Normal Affect, Normal Mood, No Sensory Deficits Cerebellar Function: Normal Reflexes: Normal Skin: Dry, Normal Color, Warm Lymphatic: No Adenopathy Was a procedure done? Was a procedure done?: No Differential Diagnosis Kidney stone (Female): Other X-Ray, Labs, Meds, VS Vital Signs Date Time Temp Pulse Resp B/P (MAP) Pulse Ox O2 Delivery O2 Flow Rate FiO2 02/27/25 06:41 97.9 89 18 128/83 96 97.9 Lab Test 02/27/25 08:58 02/27/25 08:11 Range/Units Urine Color Light-damien Yellow Urine Clarity Ex.turbid Clear Urine pH 6.0 5.0-9.0 Urine Specific Stearns 1.016 1.001-1.035 Urine Protein 1+ H Negative Urine Ketones Negative Negative Urine Blood 3+ H Negative /uL Urine Nitrite Negative Negative Urine Bilirubin Negative Negative Urine Urobilinogen Normal Negative mg/dL Urine Leukocyte Esterase 3+ Negative /uL Urine RBC 387 0 - 4 /hpf Urine Microscopic WBC 1030 H 0-5 /HPF Urine Squamous Epithelial Cells Few <5 /hpf Urine Bacteria None seen None Seen /hpf Urine Yeast (Budding) Many None Seen /hpf Urine Glucose Normal Normal mg/dL White Blood Count 7.8 4.4-10.8 10^3/uL Red Blood Count 6.32 H 4.0-5.20 10^6/uL Hemoglobin 14.0 12.2-16.2 g/dL Hematocrit 43.1 36.0-46.0 % Mean Corpuscular Volume 68.2 L 80.0-100.0 fL Mean Corpuscular Hemoglobin 22.2 L 28.0-32.0 pg Mean Corpuscular Hemoglobin Concent 32.6 32.0-36.0 g/dL Red Cell Distribution Width 15.9 H 11.8-14.3 % Platelet Count 197 140-450 10^3/uL Mean Platelet Volume 8.3 6.9-10.8 fL Neutrophils (%) (Auto) 65.7 37.0-80.0 % Lymphocytes (%) (Auto) 26.3 10.0-50.0 % Monocytes (%) (Auto) 6.0 0.0-12.0 % Eosinophils (%) (Auto) 1.4 0.0-7.0 % Basophils (%) (Auto) 0.6 0.0-2.0 % Neutrophils # (Auto) 5.1 1.6-8.6 10 ^3/uL Lymphocytes # (Auto) 2.1 0.4-5.4 10 ^3/uL Monocytes # (Auto) 0.5 0-1.3 10 ^3/uL Eosinophils # (Auto) 0.1 0-0.8 10 ^3/uL Basophils # (Auto) 0 0-0.2 10 ^3/uL Nucleated Red Blood Cells 0.1 % Sodium Level 144 136-145 mmol/L Potassium Level 4.5 3.5-5.1 mmol/L Chloride Level 109 H 98-107 mmol/L Carbon Dioxide Level 29 20-31 mmol/L Anion Gap 6 5-15 Blood Urea Nitrogen 12 9-23 mg/dL Creatinine 1.08 H 0.550-1.02 mg/dL Glomerular Filtration Rate Calc 59 >90 mL/min BUN/Creatinine Ratio 11.1 10.0-20.0 Serum Glucose 94 74-106 mg/dL Calcium Level 9.8 8.7-10.4 mg/dL X-Ray, Labs, Meds, VS Comment The patient with a history of COPD and static depression presents with acute onset dysuria, urinary frequency. -Chest X-ray ordered Differentials considered but not limited to vulvovaginitis, STDs, pyelonephritis, renal stone. I also considered Tubo-ovarian abscess, Ovarian Torsion, cyst rupture, obstruction, ischemic bowel, pancreatitis, hepatobiliary pathology, diverticulitis, appendicitis however, this is less likely as the patient does have red flags such as pruritus, thick curdy whitish discharge, green/yellow vaginal discharge, CVA tenderness, abdominal pain that is out of proportion. The patient was tolerating p.o., no previous belly surgeries, and having bowel movements so obstruction much less likely. Pain was not out of proportion so less likely ischemic bowel. No infectious symptoms to suggest infectious abdominal pathology. No bloody stools to suggest inflammatory bowel disease. test and ultrasound ordered as well as additional labs to evaluate for the above Rx: Bactrim Disposition: Discharge home. SRP discussed. Advise follow up with primary care provider within Additional MDM Review of External, Non-ED records: External records reviewed. Discussion with independent historian (EMS, family) history obtained from the patient/parents (if applicable) at bedside Chronic conditions affecting care: None Social determinants of health affecting care: None Consideration of admission (observation or admission): I considered escalation of care to admission for this patient, however given the reassuring workup, the patient is safe for outpatient management. Discussion with the Radiology: No Tests considered but not performed: Prescription medication considered but not given: Time of 1ST Reevaluation: 08:15 Reevaluation 1ST: Unchanged Patient Education/Counseling: Diagnosis, Treatment, Prognosis Family Education/Counseling: No Family Present SEPSIS Sepsis Screen Date sepsis recognized/suspect: Feb 27, 2025 Time Sepsis recognized/suspect: 644 Recent Procedure: No On Antibiotic Therapy: No Respiratory Rate >20: No Heart Rate >90: No Temp<36 C (96.8 F) or >38.3 C: No SBP <90 or MAP <65 mmHG: No New Acute Mental Status Change: No Is the patient on CPAP, BIPAP,: No Physician Orders Chest Xray 1 View (02/27/25 07:45) Vital Signs Date Time Temp Pulse Resp B/P (MAP) Pulse Ox O2 Delivery O2 Flow Rate FiO2 02/27/25 06:41 97.9 89 18 128/83 96 97.9 Laboratory Tests Test 02/27/25 08:11 White Blood Count 7.8 10^3/uL (4.4-10.8) Departure 1 Departure Time of Disposition: 09:40 Impression: Primary Impression: UTI (urinary tract infection) Qualified Codes: N30.00 - Acute cystitis without hematuria Disposition: HOME / SELF CARE / HOMELESS Condition: Stable e-Prescriptions Sulfamethoxazole W/Trimethopri (Bactrim Ds Tablet) 1 Tab Tb 1 TAB PO BID for 7 Days, #14 TAB 0 Refills Prov: DUANE CUENCA NP 02/27/25 Discharged With: Relative Critical Care Note Critical Care Time?: No Stability Stability form required: No Heart Score Heart Score: Heart Score Response (Comments) Value History N/A 0 EKG N/A 0 Age N/A 0 Risk Factors N/A 0 Troponin N/A 0 Total 0 I personally scribed for DUANE CUENCA NP ([email or web address]) on 02/27/25 at 07:49. Electronically submitted by Jt Pedersen ([email or web address]). DUNAE CUENCA NP Feb 27, 2025 07:49
[2025-02-27 08:24] LABS: Hematocrit 43.1 % (36.0-46.0); Hemoglobin 14.0 g/dL (12.2-16.2); Mean Corpuscular Hemoglobin 22.2 pg (28.0-32.0); Mean Corpuscular Volume 68.2 fL (80.0-100.0); Nucleated Red Blood Cells % 0.1 %
[2025-02-27 08:30] LABS: Potassium 4.5 mmol/L (3.5-5.1); Sodium 144 mmol/L (136-145)
[2025-02-27 08:31] LABS: Anion Gap 6 (5-15); Carbon Dioxide 29 mmol/L (20-31)
--- NOTE | 2025-02-27 08:31 | DVH ---
CHEST RADIOGRAPH INDICATION: Cough, R/o PNA TECHNIQUE: Single frontal view of the chest was obtained COMPARISON: XY CHEST TWO VIEWS ROUTINE on DOS: 02/01/25, XY CHEST TWO VIEWS ROUTINE on DOS: 05/27/24, XY CHEST TWO VIEWS ROUTINE on DOS: 02/25/24, XY CHEST TWO VIEWS ROUTINE on DOS: 01/25/24, CHEST XRAY 1 VIEW on DOS: 03/13/22 FINDINGS: Lines and Tubes: None Lungs: Clear Pleura: No effusion. No pneumothorax. Cardiomediastinal contours: Unremarkable Bones: Unremarkable IMPRESSION: No acute disease.
[2025-02-27 08:32] LABS: Calcium 9.8 mg/dL (8.7-10.4)
[2025-02-27 08:35] LABS: Chloride 109 mmol/L (98-107)
[2025-02-27 08:37] LABS: BUN/Creatinine Ratio 11.1 (10.0-20.0); Blood Urea Nitrogen 12 mg/dL (9-23); Glucose 94 mg/dL (74-106)
[2025-02-27 09:21] LABS: Urine Budding Yeast MANY /hpf (None Seen); Urine Protein, UAD 1+ (Negative)
[2025-02-27] MEDS ORDERED: BACDST PO (09:40)
[2025-02-27 09:55] VITALS: BP 118/67; PULSE 66; RESP 17; TEMP 98.4; O2SAT 98
== END 2025-02-27 09:58 | disposition home or self-care (01) ==
LOC: ER 06:29
DX: N39.0 Urinary tract infection, site not specified (principal); F17.210 Nicotine dependence, cigarettes, uncomplicated; F10.90 Alcohol use, unspecified, uncomplicated; J44.89 Other specified chronic obstructive pulmonary disease; F32.A Depression, unspecified; M19.90 Unspecified osteoarthritis, unspecified site; Z79.899 Other long term (current) drug therapy; Z90.710 Acquired absence of both cervix and uterus; Z88.0 Allergy status to penicillin; Z87.440 Personal history of urinary (tract) infections; Z79.891 Long term (current) use of opiate analgesic
CPT/HCPCS: 36415; 71045; 80048; 81001; 85025